=== PATIENT | female | born 1960 | race Caucasian/White ===

== ENCOUNTER 2017-03-11 04:02 | Emergency (ER) | payer MEDICAID ==
[~2017-03-11] VITALS: Ht 157.5 cm; Wt 75.0 kg
[~2017-03-11 04:02] MED LIST: ALPR0.5T6 PO; CITA40TA5 PO; DOXY100C2 PO; GABA300C10 PO; HYDR-3144 PO; LEVO50TA5 PO; METH750T87 PO; OXYC-302 PO
[2017-03-11] MEDS ORDERED: BACL-19 PO (04:39)
[2017-03-11] MEDS ORDERED: HYDR-3144 PO (04:39)
[2017-03-11] MEDS ORDERED: DIAZEPAM 5 MG TABLET ONE (04:45)
[2017-03-11] MEDS ORDERED: OXYcodone/APAP 5/325MG TABLET ONE (04:46)
[2017-03-11] MEDS ORDERED: DIAZEPAM 5 MG TABLET PO ONE (05:00)
[2017-03-11] MEDS ORDERED: OXYcodone/APAP 5/325MG TABLET PO ONE (05:00)
[2017-03-11] MEDS ORDERED: HYDROmorphone 1 MG/ML, 1ML ONE (05:46)
[2017-03-11 06:00] VITALS: BP 115/63
[2017-03-11] MEDS ORDERED: HYDROmorphone 1 MG/ML, 1ML IM ONE (06:00)
== END 2017-03-11 07:16 | disposition home or self-care (01) ==
LOC: ED 04:51
DX: M54.42 Lumbago with sciatica, left side (principal); Z98.1 Arthrodesis status
CPT/HCPCS: 72110; 93971; 96372; 99284; J1170; J7512

== ENCOUNTER 2017-05-28 14:28 | Emergency (ER) | payer MEDICAID ==
[~2017-05-28] VITALS: Ht 157.5 cm; Wt 80.0 kg
[~2017-05-28 14:28] MED LIST changes: +BACL-19 PO; -HYDR-3144 PO; +HYDR-3245 PO
[2017-05-28 15:38] VITALS: BP 134/72
== END 2017-05-28 15:40 | disposition home or self-care (01) ==
LOC: ED 15:35
DX: S46.111A Strain of muscle, fascia and tendon of long head of biceps, right arm, initial encounter (principal); S66.811A Strain of other specified muscles, fascia and tendons at wrist and hand level, right hand, initial encounter; X58.XXXA Exposure to other specified factors, initial encounter; Y93.89 Activity, other specified; Y92.89 Other specified places as the place of occurrence of the external cause; Y99.8 Other external cause status
CPT/HCPCS: 93005; 99283

== ENCOUNTER → 2018-05-18 | Outpatient (CLI) | payer MEDICAID, OTHER | END | disposition home or self-care (01) | LOC: CFH 11:11 | PROVIDERS: ATTEND Nurse Practitioner | DX: M25.512 Pain in left shoulder (principal); M54.2 Cervicalgia | CPT/HCPCS: 72040 ==